=== PATIENT | male | born 1945 | race Caucasian/White ===

== ENCOUNTER 2020-02-13 00:51 | Outpatient (CLI) | payer MEDICARE, SELFPAY ==
[2020-02-13 17:00] LABS: SARS-CoV-2 RNA PCR Negative
== END 2020-02-13 00:52 | disposition home or self-care (01) ==
LOC: ANHCOVIDDT 00:52
PROVIDERS: Visit Provider Plastic Surgery
DX: Z20.828 Contact with and (suspected) exposure to other viral communicable diseases (principal); Z01.812 Encounter for preprocedural laboratory examination
CPT/HCPCS: 87635; C9803; U0003

== ENCOUNTER 2020-02-15 01:21 | Day surgery (SDC) | payer MEDICARE, SELFPAY ==
[2019-11-08 15:58] VITALS: BMI 19.5
[2020-02-09 15:27] VITALS: BMI 19.9
--- NOTE | 2020-02-09 15:35 | PC.NURSE ---
CITLALI STATES NO CHANGE IN HEALTH HX SINCE LAST INTERVIEW 11/08/19
--- NOTE | 2020-02-14 19:30 | HP_ITS ---
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 HISTORY: This gentleman is 74. He had squamous cell carcinoma excised from the right cheek 10/25/2019. This revealed moderately to poorly differentiated squamous cell carcinoma tumor extending to the margin. That tissue was reviewed at the [facility] in consult. The patient who is a renal transplant and has multiple other health issues, could not be scheduled for re-excision of this area readily and then came the coronavirus. The site now appears to be recurrent with several red and lucent nodules in the skin covering an area approximately 5 x 5 cm. He is aware of the need for excision of this. At his age, we may be able to close the wound directly, but the skin graft was also mentioned to him and his as possible solution to closing this wound. It should be performed under frozen section and it may be difficult to get free margin. The patient was hospitalized in October at [place] and he was transferred to [place] for fluid retention. MEDICATIONS: We tried to update his medication list. He has been on Xarelto for a while, but is off now by coincidence. He dropped it for a few days. When I saw him on 02/08/2020 in the office, he has been taking his aspirin. The patient remains on Prograf and 5 mg of prednisone daily. His fludrocortisone is 0.1 mg a day, calcium and vitamin D are included. Other medications include atorvastatin, doxycycline 100 mg, midodrine 5 mg 2 times a day, Lantus and NovoLog. When we saw him on 02/08/2020, we tried to schedule him for the next day, but again surgery was delayed by a need to get coronavirus tested. I have followed the patient since 2009 and he has had a number of skin cancers, mostly squamous cell carcinomas removed. FAMILY HISTORY: Noncontributory. SOCIAL HISTORY: He lives in [place]. He is retired. He lives with his , Melissa. PHYSICAL EXAMINATION: GENERAL: He is in a wheelchair a lot now, but is very engaging fellow, fully participates in the conversation. His last stated height was 6 feet and weight 160 pounds. HEENT: Reveals numerous scars and the nodules 5 or 6 of them on the right posterior cheek. There is no palpable adenopathy in the parotid or supraclavicular area. CHEST: Clear to auscultation. HEART: Regular rate and rhythm by palpation. ABDOMEN: Soft, nontender. EXTREMITIES: All 4 work, but they are kind of weak. He does not walk a lot. PRIOR SURGERIES: Include a renal transplant in 2004. He had an eye surgery in 2011. He has had a cholecystectomy in 2002 and he has had numerous skin cancers removed. DIAGNOSES: 1. Diabetes mellitus. 2. 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 3. 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 PLAN: Wide excision of squamous cell carcinoma of the right cheek under MAC anesthetic with frozen section and likely direct skin closure, possible full-thickness skin graft. D I MT: Steffanie ANNE
[2020-02-15 06:18] VITALS: BP 154/72; PULSE 58; RESP 16; TEMP 36.4; O2SAT 98
[2020-02-15 06:29] LABS: Glucose Point of Care 83 (65-105)
[2020-02-15] MEDS: LACTATED RINGERS 1,000 ML 30 ML IV CONT (06:30)
--- NOTE | 2020-02-15 07:09 | WPDANESEPPF ---
Anes - Initial Pre Proc Eval Procedure: Operation Date: 02/15/20 07:30 Proposed Procedures p Excision Of Squamous Cell Carcinoma Right Cheek With Frozen Section - Gavin Dai MD Date/Time: 02/15/20 07:09 Surgeon: Gavin Dai MD Pre Op Diagnosis: Squamous Cell Carcinoma Right Cheek Patient Data Age: 74 Gender: M Height: 1.88 m Weight: 75.6 kg Last Vital Signs Temp 36.4 C L 02/15/20 06:18 Pulse 58 L 02/15/20 06:18 Resp 16 02/15/20 06:18 BP 154/72 H 02/15/20 06:18 Pulse Ox 98 02/15/20 06:18 Allergies Allergy/AdvReac Type Severity Reaction Status Date / Time No Known Allergies Allergy Unverified 02/15/20 06:36 Home Medications Medication Instructions Recorded Confirmed Type atorvastatin 80 mg PO HS 11/08/19 02/15/20 History calcium carbonate-vitamin D3 1 cap PO DAILY 11/08/19 02/15/20 History [Calcium 600 + D(3)] doxycycline hyclate 100 mg PO BID 11/08/19 02/15/20 History fludrocortisone 0.1 mg PO DAILY 11/08/19 02/15/20 History insulin aspart U-100 [Novolog 1 unit SUBCUT TID 11/08/19 02/15/20 History Flexpen U-100 Insulin] insulin glargine [Lantus U-100 18 unit SUBCUT DAILY 11/08/19 02/15/20 History Insulin] midodrine 10 mg PO DAILY 11/08/19 02/15/20 History prednisone 5 mg PO DAILY 11/08/19 02/15/20 History rivaroxaban [Xarelto] 20 mg PO Q48H 11/08/19 02/15/20 History tacrolimus [Prograf] 1 mg PO Q12H 11/08/19 02/15/20 History furosemide [Lasix] 40 mg PO EVERY OTHER DAY 02/09/20 02/15/20 History potassium chloride 20 meq PO EVERY OTHER DAY 02/09/20 02/15/20 History Laboratory Tests 02/15/20 06:27 POC Capillary Glucose 83 mg/dl mg/dl (65-105) Patient hx anesthesia problems: none Family hx anesthesia problems: none PMFSH Past Medical History Medical History (Updated 02/15/20 @ 07:09 by Frantz Puckett DO) CHF (congestive heart failure) 2018 - controlled Diabetes type 2, controlled History of skin cancer Hyperlipidemia Neuropathy Orthostatic hypotension Valvular 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 Surgical History Surgical History (Updated 02/14/20 @ 12:51 by Frantz Puckett DO) History of kidney transplant Social History Social History Gender identity (if verbalized by the patient): Male Anes - Eval Final PreProcedure Day of Procedure 02/15/20 07:09 Patient weight: normal Heart: regular rate and rhythm Lungs: clear to auscultation and normal air movement Airway: Mallampati scale class II Neurological: alert and oriented Last oral intake: >/= 8 hours ASA classification: IV Emergent: no Anesthetic plan: proceed Anesthesia type and monitoring: general GIVS and standard monitoring Informed Consent: The patient's anesthetic plan and its attendant risks and benefits were discussed with the patient/family/POA. Questions were solicited and answers provided to the satisfaction of the patient/family/POA.
--- NOTE | 2020-02-15 07:19 | WPDHPUPDATE1 ---
History and Physical Update Update Date/Time: 02/15/20 07:19 History and Physical has been reviewed, including an updated exam of the patient. There are NO changes in the patient's condition. Risks, benefits, and alternatives have been discussed and questions answered. Patient agrees to proceed with procedure.
[2020-02-15] MEDS: ceFAZolin SODIUM 1 GM VIAL IM (07:56)
[2020-02-15] MEDS: LIDO 1%/EPINEPHRINE 1:100,000 20 ML VIAL 10 ML INFILTRATE (07:56)
[2020-02-15] MEDS: BACITRACIN OINTMENT 15 GM TUBE 1 APPLIC TOPICAL (07:57)
--- NOTE | 2020-02-15 09:59 | SUR.OPER ---
EBL:20cc
[2020-02-15 10:11] VITALS: BP 129/64; PULSE 65; RESP 14; TEMP 36.3; O2SAT 96
--- NOTE | 2020-02-15 10:13 | P.OPB_ITS ---
Procedure Note - Brief Procedure Note - Brief Date of procedure: 02/15/20 Pre-op diagnosis: Squamous Cell Carcinoma Right Cheek Poorly differentiated SCCA of right cheek Post-op diagnosis: other (Poorly differentiated skin ca of the right cheek, final diagnosis pending permenant sections.) Procedure performed: 13 x 5 cm excision of recurrent poorly differentiated squamous cell carcinoma of the right cheek with frozen section x1 and interm ediate repair 15 cm Description of procedure: The site on the right cheek was marked on the patient as he lay in the holding area. He was taken to the operating and was placed supine on the operating table. A time-out was held and confirmed. He was given general anesthesia with LMA. The right hemiface neck and chest were prepped and draped in usual fashion. An approximately 1 cm margin ellipse was drawn around the cluster of cutaneous tumors. This area was infiltrated with 1% lidocaine with epinephrine the The excision was carried out full-thickness. The large paddle of skin was carefully taken off the parotid fascia and the upper sternocleidomastoid muscle. A thin layer of muscle and parotid fascia were taken with the specimen. The great auricular nerve was not seen. The parotid fascia was not fully penetrated and we saw no evidence of the facial nerve. The specimen was marked at 4 points with varius suture configurations. If was sent to pathology. The pathologist reports that this is a poorly differentiated cancer, he can't determine the actual type at this time, but he believes margins were free including the deep margins. The wound VAC could be closed with minimal undermining and placement of intradermal 3-0 Vicryl sutures. This was done over a small 1 and 1/2 inch section of Brighton drain placed at the inferior end of the wound. The skin was closed with a running 5 0 nylon,the Brighton drain was attached with a single 5 0 nylon suture. Appropriate gauze bandage was applied over this. There were no complications we believe. The patient was transported from the operating room to the recovery room stable condition, blood loss was approximately 5 mils. Surgeon: Gavin Dai MD
[2020-02-15 10:40] VITALS: BP 129/64; PULSE 66; RESP 14
[2020-02-15 11:10] VITALS: BP 146/60; PULSE 62; RESP 16
[2020-02-15 11:40] VITALS: BP 149/66; PULSE 63; RESP 20
[2020-02-15] MEDS: TRAMADOL HCL 50 MG TABLET PO (11:40)
[2020-02-15 12:09] LABS: Glucose Point of Care 83 (65-105)
[2020-02-15 12:10] VITALS: BP 145/72; PULSE 60; RESP 20
== END 2020-02-15 12:15 | disposition home or self-care (01) ==
PROVIDERS: Visit Provider Plastic Surgery
PROC: (CPT 11646; principal; 2020-02-15 07:30)
DX: C44.329 Squamous cell carcinoma of skin of other parts of face (principal); I50.9 Heart failure, unspecified; E78.5 Hyperlipidemia, unspecified; G62.9 Polyneuropathy, unspecified; E11.40 Type 2 diabetes mellitus with diabetic neuropathy, unspecified; I95.1 Orthostatic hypotension; Z79.4 Long term (current) use of insulin; Z79.01 Long term (current) use of anticoagulants; Z94.0 Kidney transplant status
CPT/HCPCS: 11646; 12055; 88305; 88331; 88332; A9270; J0690; J2704; J3010; J7120

== ENCOUNTER 2020-03-14 08:58 | Outpatient (CLI) | payer MEDICARE, SELFPAY ==
--- NOTE | ~2020-03-14 | CT_ITS ---
EXAMINATION: CT brain wo con DATE: 03/14/2020 09:44 INDICATION: Squamous cell carcinoma of the neck. TECHNIQUE: Computed tomography (CT) of the head was performed without intravenous contrast. The dose- length product was 681.00 mGy-cm. The mA was adjusted according to patient size. Iterative reconstruc tion technique was employed. COMPARISON: None FINDINGS: There is a chronic right posterior parietal infarction. There are scattered mild periventri cular and subcortical white matter changes, most likely related to small vessel ischemic disease (sheryl roangiopathy). No ventriculomegaly or midline shift. No acute intracranial hemorrhage, infarction, ma ss or mass effect. Mild mucosal thickening of the maxillary sinuses. Mastoids are pneumatized. No dep ressed skull fractures. IMPRESSION: 1. No acute intracranial abnormality. 2: Chronic right parietal lobe infarction. 3: Chronic age-related findings. Reviewed, dictated and finalized at location B.
--- NOTE | ~2020-03-14 | CT_ITS ---
EXAMINATION: CT soft tissue neck chest wo DATE: 03/14/2020 09:45 INDICATION: Squamous cell carcinoma of skin of right cheek. TECHNIQUE: Computed tomography (CT) of the neck and chest was performed without intravenous contrast. Automated exposure control and iterative reconstruction technique were employed. The dose-length pro duct was 802.91 mGy-cm. COMPARISON: None FINDINGS: CT NECK: There are widespread arterial calcifications. There are no pathologically enlarged lymph nod es. There is severe cervical spondylosis. CT CHEST: There is mild scarring at the lung apices. There are airspace opacities, tree-in-bud opacit ies, and groundglass opacities in right middle lobe, consistent with pneumonia. There is smooth septa l thickening bilaterally, consistent with mild pulmonary edema. There are small pleural effusions. Ca rdiomegaly is noted. There are coronary artery calcifications. No pericardial effusion. Partially vis ualized is atrophy of the kidneys. There is a chronic compression fracture of T11. There is mild thor acic spondylosis. There are old healed bilateral rib fractures. IMPRESSION: 1. No evidence of metastatic disease. 2. Mild pneumonia in right middle lobe. 3. Mild pulmonary edema with small pleural effusions. Reviewed, dictated and finalized at location A.
== END 2020-03-14 08:59 | disposition home or self-care (01) ==
PROVIDERS: Visit Provider Internal Medicine Hematology & Oncology
DX: C44.329 Squamous cell carcinoma of skin of other parts of face (principal); J18.9 Pneumonia, unspecified organism; J81.1 Chronic pulmonary edema; J90 Pleural effusion, not elsewhere classified
CPT/HCPCS: 70450; 70490; 71250

== ENCOUNTER 2020-09-17 08:14 | Outpatient (CLI) | payer MEDICARE, SELFPAY ==
--- NOTE | ~2020-09-17 | CT_ITS ---
EXAMINATION: CT soft tissue neck chest wo DATE: 09/17/2020 08:59 INDICATION: Squamous cell carcinoma of right cheek. TECHNIQUE: Computed tomography (CT) of the neck was performed without intravenous contrast. Automated exposure control and iterative reconstruction technique were employed. The dose-length product was 8 06.84 mGy-cm. COMPARISON: Neck CT 03/14/2020 FINDINGS: There is mild scarring at the lung apices. There are likely changes of ocular lens replacem ent surgeries. There are calcifications of anterior aspect of right medial rectus muscle. There are e xtensive arterial calcifications. There are no pathologically enlarged lymph nodes. There is skin thi ckening superficial to the right parotid gland. There is severe cervical spondylosis. There is multif ocal dental disease. IMPRESSION: 1. Skin thickening superficial to the right parotid gland, consistent with malignancy and/or surgical change. 2. No evidence of metastatic disease. Reviewed, dictated and finalized at location B. . MERCHANDISE PLANNER IMPRESSION: 1. Skin thickening superficial to the right parotid gland, consistent with hannah gnancy and/or surgical change. 2. No evidence of metastatic disease.
--- NOTE | ~2020-09-17 | CT_ITS ---
EXAMINATION: CT brain wo con DATE: 09/17/2020 08:58 INDICATION: Right cheek squamous cell carcinoma. TECHNIQUE: Computed tomography (CT) of the head was performed without intravenous contrast. The mA wa s adjusted according to patient size. Iterative reconstruction technique was employed. The dose-lengt h product was 681.00 mGy-cm. COMPARISON: Head CT 03/14/2020 FINDINGS: There is old infarct in right occipital lobe. There is no intracranial hemorrhage, acute in farction, or abnormal intracranial mass lesion. The ventricles are normal in size. There is mild muco katie thickening in the paranasal sinuses. There are likely changes of ocular lens replacement surgerie s. There are calcifications of anterior aspect of right medial rectus muscle. The mastoid air cells a re normal. IMPRESSION: 1. Old infarct in right occipital lobe. Reviewed, dictated and finalized at location B. S ADMINISTRATION MANAGER
== END 2020-09-17 08:15 | disposition home or self-care (01) ==
PROVIDERS: Referring Provider Plastic Surgery
DX: C44.329 Squamous cell carcinoma of skin of other parts of face (principal); Z86.73 Personal history of transient ischemic attack (TIA), and cerebral infarction without residual deficits
CPT/HCPCS: 70450; 70490; 71250